=== PATIENT | female | born 1995 | race African-American/Black ===

== ENCOUNTER 2016-10-15 22:00 | Emergency (ER) | payer SELFPAY ==
[~2016-10-15] VITALS: Ht 162.6 cm; Wt 57.0 kg
[~2016-10-15 22:00] MED LIST: AMOX500C PO; DICL50TA3 PO
[2016-10-15 22:02] VITALS: BP 146/86; PULSE 83; RESP 15; TEMP 98.3; O2SAT 98
== END 2016-10-16 00:31 | disposition left against medical advice (07) ==
LOC: NED 22:00
DX: R10.9 Unspecified abdominal pain (principal)
CPT/HCPCS: 99281